=== PATIENT | female | born 1975 | race Caucasian/White ===

== ENCOUNTER 2017-11-12 14:51 | Outpatient (CLI) | payer OTHER ==
--- NOTE | 2017-11-12 16:14 | MRI ---
MRI OF THE LUMBAR SPINE WITHOUT CONTRAST 11/12/17 HISTORY: Severe back pain and leg pain. FINDINGS: The vertebral body heights and marrow signal are maintained. There is a disc desiccation at L4-5 leve l. No focal disc herniation, central canal stenosis or neural foraminal stenosis is seen. The conus m edullaris ends at L1 level. There are mild facet hypertrophic changes at L4-5 level. A small synovial cyst is seen posteriorly at L5-S1 facet. IMPRESSION: No significant abnormalities are identified. POS: HIRAM
== END 2017-11-12 14:52 | disposition home or self-care (01) ==
LOC: MRI 14:51
PROVIDERS: ATTEND Surgery
DX: M54.9 Dorsalgia, unspecified (principal)
CPT/HCPCS: 72148

== ENCOUNTER 2018-04-07 09:05 | Outpatient (CLI) | payer OTHER | END 2018-04-07 09:06 | disposition home or self-care (01) | LOC: BICMAMMO 09:05 | PROVIDERS: ATTEND Family Medicine | DX: Z12.31 Encounter for screening mammogram for malignant neoplasm of breast (principal); L90.5 Scar conditions and fibrosis of skin; Z98.890 Other specified postprocedural states; Z80.3 Family history of malignant neoplasm of breast | CPT/HCPCS: 77063; 77067 ==

== ENCOUNTER 2018-06-28 19:55 | Emergency (ER) | payer OTHER ==
[2018-06-28 23:26] LABS: HBSAB Concentration 0.06 mIU/mL; HIV (1/2) Antibody/Antigen Non-Reactive (NonReactive); HIV 1/2 INDEX 0.11 S/CO (<1.00); Hep B Surf AB Non-Reactive (NonReactive); Hep C IgG Ab Non-Reactive (NonReactive); Hep C Index 0.12 S/CO (0-0.79)
== END 2018-06-28 21:48 | disposition home or self-care (01) ==
LOC: ERS 19:55
DX: Z20.2 Contact with and (suspected) exposure to infections with a predominantly sexual mode of transmission (principal); Z79.899 Other long term (current) drug therapy
CPT/HCPCS: 86706; 86803; 87389; 99283